=== PATIENT | female | born 1975 | race Caucasian/White ===

== ENCOUNTER 2018-10-25 21:47 | Emergency (ER) | payer OTHER ==
[~2018-10-25] VITALS: Ht 167.6 cm; Wt 82.6 kg
[~2018-10-25 21:47] MED LIST: CYMBALTA60 M1 PO; FLOMAX0.4 MG PO; MAC100 PO; PYRIDIUM200 MG PO; ZYPREXA2.5 MG PO
[2018-10-25 22:21] VITALS: Ht 167.6 cm; Wt 82.6 kg
[2018-10-26 00:45] VITALS: BP 148/93
== END 2018-10-26 00:45 | disposition home or self-care (01) ==
LOC: ED 21:47
DX: M62.830 Muscle spasm of back (principal); R03.0 Elevated blood-pressure reading, without diagnosis of hypertension; F32.9 Major depressive disorder, single episode, unspecified; Z87.442 Personal history of urinary calculi; Z98.890 Other specified postprocedural states
CPT/HCPCS: 20552; J2001

== ENCOUNTER 2019-01-02 21:13 | Emergency (ER) | payer OTHER ==
[~2019-01-02] VITALS: Ht 167.6 cm; Wt 100.0 kg
[2019-01-02 21:19] VITALS: Ht 167.6 cm; Wt 100.0 kg
[2019-01-02 22:02] LABS: BASOPHIL % 0.6 % (0-2); PLATELET COUNT 174 x10^3mcL (130-400); RED CELL DISTRIBUTION WIDTH 14.5 % (11.5-14.5)
[2019-01-02 22:10] LABS: CALCIUM 9.1 mg/dL (8.5-10.1); CARBON DIOXIDE 23.1 mmol/L (21-32); CHLORIDE SERUM 101 mmol/L (98-107); CREATININE SERUM 0.9 mg/dL (0.6-1.0); GFR1 > 60 mL/min; GLUCOSE SERUM 106 mg/dL (74-106); POTASSIUM SERUM 3.4 mmol/L (3.5-5.1); SODIUM SERUM 135 mmol/L (136-145)
[2019-01-02 22:15] LABS: ALKALINE PHOSPHATASE 52 U/L (46-116); ALT/SGPT 27 U/L (14-59); AMYLASE 40 U/L (25-115); AST/SGOT 19 U/L (15-37); BILIRUBIN TOTAL 0.61 mg/dL (0.20-1.00); LIPASE 147 IU/L (73-393)
[2019-01-03 00:14] VITALS: BP 133/97
== END 2019-01-03 00:14 | disposition home or self-care (01) ==
LOC: ED 21:13
PROVIDERS: Specialist
DX: N39.0 Urinary tract infection, site not specified (principal); F32.9 Major depressive disorder, single episode, unspecified; Z87.442 Personal history of urinary calculi
CPT/HCPCS: 36415; 87491; 87591; J0696

== ENCOUNTER 2019-08-23 13:37 | Emergency (ER) | payer OTHER ==
[~2019-08-23] VITALS: Ht 167.6 cm; Wt 106.1 kg
[2019-08-23 13:54] VITALS: Ht 167.6 cm; Wt 106.1 kg
[2019-08-23 16:56] LABS: microscopic required? NO
[2019-08-23 17:04] LABS: UA SPECIFIC GRAVITY <=1.005 (1.005-1.035); urine erythrocyte NEGATIVE (NEGATIVE)
[2019-08-23 17:15] LABS: BASOPHIL % 0 % (0-2); PLATELET COUNT 155 x10^3mcL (130-400); RED CELL DISTRIBUTION WIDTH 14.3 % (11.5-14.5)
[2019-08-23 17:32] LABS: CALCIUM 9.1 mg/dL (8.5-10.1); CARBON DIOXIDE 27.4 mmol/L (21-32); CHLORIDE SERUM 100 mmol/L (98-107); CREATININE SERUM 0.9 mg/dL (0.6-1.0); GFR1 > 60 mL/min; GLUCOSE SERUM 101 mg/dL (74-106); POTASSIUM SERUM 3.4 mmol/L (3.5-5.1); SODIUM SERUM 135 mmol/L (136-145)
[2019-08-23 17:38] LABS: ALBUMIN 3.9 g/dL (3.4-5.0); ALKALINE PHOSPHATASE 48 U/L (46-116); ALT/SGPT 37 U/L (14-59); AST/SGOT 20 U/L (15-37); BILIRUBIN TOTAL 0.72 mg/dL (0.20-1.00); LIPASE 141 IU/L (73-393); TOTAL PROTEIN, SERUM 7.7 g/dL (6.4-8.2)
[2019-08-23 22:36] VITALS: BP 106/57
== END 2019-08-23 22:36 | disposition home or self-care (01) ==
LOC: ED 13:37
PROVIDERS: Emergency Medicine
DX: N83.202 Unspecified ovarian cyst, left side (principal); I10 Essential (primary) hypertension; Z87.442 Personal history of urinary calculi
CPT/HCPCS: J2270; J2405

== ENCOUNTER 2019-10-13 20:04 | Emergency (ER) | payer OTHER ==
[~2019-10-13] VITALS: Ht 167.6 cm; Wt 108.0 kg
[2019-10-13 20:14] VITALS: Ht 167.6 cm; Wt 108.0 kg
[2019-10-13 21:24] VITALS: BP 150/86
== END 2019-10-13 21:24 | disposition home or self-care (01) ==
LOC: ED 20:04
DX: M54.5 Low back pain (principal); I10 Essential (primary) hypertension; Z87.442 Personal history of urinary calculi
CPT/HCPCS: J1885

== ENCOUNTER 2020-06-29 13:59 | Emergency (ER) | payer OTHER ==
[~2020-06-29] VITALS: Ht 167.6 cm; Wt 108.9 kg
[2020-06-29 14:11] VITALS: Ht 167.6 cm; Wt 108.9 kg
[2020-06-29 16:11] VITALS: BP 138/99
== END 2020-06-29 16:11 | disposition home or self-care (01) ==
LOC: ED 13:59
DX: S39.012A Strain of muscle, fascia and tendon of lower back, initial encounter (principal); G56.00 Carpal tunnel syndrome, unspecified upper limb; Z98.890 Other specified postprocedural states; X58.XXXA Exposure to other specified factors, initial encounter; Y93.89 Activity, other specified; Y92.89 Other specified places as the place of occurrence of the external cause; Y99.8 Other external cause status
CPT/HCPCS: J1885; J2001